=== PATIENT | female | born 1995 | race Caucasian/White ===

== ENCOUNTER 2023-04-08 15:23 | Emergency (ER) | payer BC, SELFPAY ==
--- NOTE | ~2023-04-08 | XR_ITS ---
EXAM: XR ankle LT min 3V DATE: 04/08/2023 16:03 HISTORY: fall down hill . COMPARISON: None available. FINDINGS: Normal mineralization. Oblique fracture of the medial malleolus. Oblique and mildly commin uted, posteriorly displaced distal fibular fracture, extending to the level of the joint line. Final Block Press Operator iorly displaced posterior malleolus fracture. Posterior dislocation of the talar dome relative to the tibial plafond. No lytic or blastic lesion. Minimal Achilles and moderate plantar enthesopathy. No e rosion or periosteal change. Ankle soft tissue swelling. IMPRESSION: Trimalleolar left ankle fracture with posterior tibiotalar dislocation. Reviewed, dictated and finalized at location K. REL MAKER IMPRESSION: Trimalleolar left ankle fracture with posterior tibiotalar dislocat ion.
[2023-04-08 15:43] VITALS: BP 108/68; PULSE 54; RESP 16; TEMP 35.8; O2SAT 100
--- NOTE | 2023-04-08 15:46 | ED.GENADULT ---
HPI - General Adult General Chief complaint: Extremity Injury, Lower Stated complaint: left ankle injury Source: patient, RN notes reviewed and old records reviewed Mode of arrival: ambulatory Limitations: no limitations History of Present Illness HPI narrative: 27-year-old female presents to [facility] with complaints of left ankle pain after feeling pop and twisting ankle. Patient has not taken anything for pain. Related Data Home Medications Medication Instructions Recorded Confirmed norethindrone acetate 1.5 1 tablet PO DAILY 07/12/22 04/08/23 mg-ethinyl estradiol 30 mcg tablet (Loestrin) Allergies Allergy/AdvReac Type Severity Reaction Status Date / Time No Known Allergies Allergy Verified 04/08/23 15:56 Review of Systems Constitutional: Constitutional: Reports no additional constitutional complaints, Denies body ache(s), Denies chills, Denies fatigue, Denies fever(s) and Denies headache(s) Eyes: Eyes: Reports no additional eye complaints and Denies blurry vision ENT: Reports system reviewed and no additional complaints, except as documented, Denies vertigo, Denies dizziness, Denies ear discharge, Denies otalgia, Denies facial pain, Denies headache(s), Denies nasal congestion, Denies nasal discharge, Denies sinus pain, Denies sinus pressure and Denies sore throat Cardiovascular: Cardiovascular: Reports no additional cardiovascular complaints, Denies chest pain, Denies chest pain at rest, Denies rapid heart rate and Denies dyspnea Respiratory: Respiratory: Reports no additional respiratory complaints, Denies chest congestion, Denies cough, Denies pain on inspiration, Denies pain with cough and Denies dyspnea Gastrointestinal: Gastrointestinal: Denies abdominal pain, Denies diarrhea, Denies nausea and Denies vomiting Musculoskeletal: Musculoskeletal: Reports arthralgias and Reports joint swelling Integumentary/Breasts: Skin/Breast: Denies rash Neurologic: Reports system reviewed and no additional complaints, except as documented, Denies vertigo, Denies dizziness and Denies headache(s) Endocrine: Endocrine: Denies fatigue [facility] Past Medical History Medical History (Updated 04/08/23 @ 18:38 by Calvin Lew PA-C) Anxiety disorder, unspecified Social History Social History Smoking status: Never smoker Alcohol intake: current Alcohol use details: occasionally Lack of Transportation: No Lack of Food: Never True Current Housing: I Have Housing Concerned About Future Housing: No Difficulty Paying Gas/Electric Bills: No Difficulty Paying for Meds: No Currently Unemployed: No Education: Bachelor's Degree Difficulty w/ Childcare or Family Care: No Comments At the time of my signature, I reviewed and agree with the nursing past medical, surgical, social, and family history. There is no relevant family history pertinent to the patient complaint. Exam Const: General: cooperative, healthy appearing, no acute distress and well nourished Nutritional Appearance: well nourished Orientation/consciousness: patient oriented x3 Limitations: no limitations HENMT: Head: normal to inspection and normocephalic Ears: external ears normal and mastoids normal Face/Nose/Sinus: normal facial exam Face and sinus: normal facial exam Mouth: Yes Normal oral and palatal mucosa present and Yes moist mucous membranes Eyes: General: appearance normal, both eyes and all related structures Sclera: sclerae normal Pupils: Equal, round and reactive pupils present Resp: Effort & Inspection: normal respiratory effort, able to speak in complete sentences, no audible wheezes, no cough, no respiratory distress and no retractions Skin: General skin exam: normal color and no rashes or lesions noted Neuro: General: patient oriented x3 Cranial nerves: Yes Equal, round and reactive pupils present Extrem: Left lower extremity: ankle Details: tendernes
== END 2023-04-08 16:48 | disposition short-term general hospital (02) ==
PROVIDERS: Emergency Provider Registered Nurse; PCP Emergency Medicine
DX: S82.852A Displaced trimalleolar fracture of left lower leg, initial encounter for closed fracture (principal); X50.9XXA Other and unspecified overexertion or strenuous movements or postures, initial encounter; S93.05XA Dislocation of left ankle joint, initial encounter
CPT/HCPCS: 29515; 73610; 99214; G0463

== ENCOUNTER 2023-04-08 16:58 | Inpatient (IN) | payer BC, SELFPAY ==
--- NOTE | ~2023-04-08 | XR_ITS ---
EXAMINATION: XR fluoroscopy no charge DATE: 04/09/2023 09:54 INDICATION: Closed fracture of left ankle. TECHNIQUE: 5 intraoperative spot fluoroscopic views of left ankle were obtained. I wasn't present. Fl uoroscopy exposure time was 11 seconds. COMPARISON: Left ankle radiographs 04/08/2023 FINDINGS: There is a comminuted fracture of distal fibula. The main distal fracture fragment demonstr ates 3 mm posterior displacement. There is a fracture of posterior malleolus with 4 mm posterior disp lacement of the posterior fracture fragment. There is an oblique fracture of medial malleolus in near -anatomic alignment. IMPRESSION: 1. Trimalleolar ankle fracture with improvement in alignment status post closed reduction. Reviewed, dictated and finalized at location A. [employer] SCHOOL TEACHER LIBRARIAN
--- NOTE | ~2023-04-08 | CT_ITS ---
EXAMINATION: CT ankle LT wo con DATE: 04/09/2023 10:46 INDICATION: Left ankle fracture. Postop. TECHNIQUE: Computed tomography (CT) of the left ankle was performed without intravenous contrast. Aut omated exposure control and iterative reconstruction technique were employed. The dose-length product was 440.55 mGy-cm. COMPARISON: Left ankle radiographs 04/08/2023 FINDINGS: There is a comminuted fracture of distal fibula with proximal medial aspect of the fracture line 4.4 cm proximal to the level of the tibial plafond. The distal fracture fragment demonstrates 5 mm posterior displacement. There is a comminuted fracture involving the posterior aspect of the tibi al plafond and posterior aspect of medial malleolus with 3 mm fracture gap and 2 mm step-off at the p osterior tibial plafond articular surface. Other joint spaces are normal. There is an enthesophyte at plantar aspect of calcaneal tuberosity. IMPRESSION: 1. Trimalleolar ankle fracture. Reviewed, dictated and finalized at location A. MER MEAT
--- NOTE | ~2023-04-08 | XR_ITS ---
EXAM: XR ankle LT 2V DATE: 04/08/2023 18:14 HISTORY: post reduction . COMPARISON: Same date at 3:55 PM. FINDINGS/IMPRESSION: Interval cast application. Essentially unchanged alignment of the tibiotalar dis location with trimalleolar ankle fracture, given interval differences in positioning and technique. Reviewed, dictated and finalized at location K. ONNEL CONSULTANT
--- NOTE | ~2023-04-08 | XR_ITS ---
EXAMINATION: XR surgery orthopedic DATE: 04/10/2023 15:13 INDICATION: ORIF left ankle fracture TECHNIQUE: 3 fluoroscopic images of the left ankle were obtained during procedure performed by Dr. Bruno marion. Radiologist was not present for the imaging or procedure. The amount of fluoroscopy time used during this procedure was 1.4 minutes. COMPARISON: 04/09/2023 FINDINGS: Interval reduction and internal fixation of the trimalleolar fracture of the left ankle. The medial a nd posterior malleolar fracture is fixed with a pair of screws. The distal fibular fracture is fixed with a retrograde intramedullary bandar and pair of distal interlocking screws. There is also a tightrop e type distal tibiofibular syndesmotic fixation with metallic buttons at the medial and lateral sides of a lucent tunnel extending across the metaphyseal region of the distal tibia and fibula. Alignment appears near-anatomic with minimal residual displacement of the distal fibular and posterior malleol ar fractures and no appreciable displacement of the medial malleolar fracture. Ankle mortise is congr uent. Joint spaces appear normal. No new fractures identified. IMPRESSION: 1. Near-anatomic alignment post reduction internal fixation of a trimalleolar fracture at the left an kle including distal tibiofibular syndesmotic fixation. Reviewed, dictated and finalized at location A. HI DEVELOPER IMPRESSION: 1. Near-anatomic alignment post reduction internal fixation of a trimalleolar f racture at the left ankle including distal tibiofibular syndesmotic fixation.
[2023-04-08 16:59] VITALS: BP 107/66; PULSE 54; RESP 18; TEMP 36.1; O2SAT 100
--- NOTE | 2023-04-08 17:06 | ED.GENADULT ---
HPI - General Adult General Chief complaint: Extremity Injury, Lower <SIENNA Arora Last Filed: 04/09/23 00:38> Stated complaint: Left ankle injury <SIENNA Arora Last Filed: 04/09/23 00:38> Time Seen by Provider: 04/08/23 17:05 <SIENNA Arora Last Filed: 04/09/23 00:38> Source: patient <SIENNA Arora Last Filed: 04/09/23 00:38> Mode of arrival: ambulatory <SIENNA Arora Last Filed: 04/09/23 00:38> Limitations: no limitations <SIENNA Arora Last Filed: 04/09/23 00:38> History of Present Illness HPI narrative: This is a 27-year-old female who presents to the ED after urgent care visit for chief complaint of left ankle injury. Patient reports she was walking her dog going down held today. Footwear was slides. She slipped on a gum ball on the ground causing her to roll her ankle. She felt a pop and she fell down. Significant difficulty with ambulation after the injury. Urgent care took an x-ray that showed trimalleolar fracture of the left ankle with talotibial dislocation. Denies numbness, weakness or any further sites of injury. presents with splint in place <SIENNA Arora Last Filed: 04/09/23 00:38> Related Data Home medications: Home Medications Medication Instructions Recorded Confirmed norethindrone acetate 1.5 1 tablet PO DAILY 07/12/22 04/08/23 mg-ethinyl estradiol 30 mcg tablet (Loestrin) <SIENNA Arora Last Filed: 04/09/23 00:38> Allergies/adverse reactions: Allergies Allergy/AdvReac Type Severity Reaction Status Date / Time No Known Allergies Allergy Verified 04/08/23 15:56 <SIENNA Arora Last Filed: 04/09/23 00:38> Review of Systems Review of Systems: All systems as dictated in HPI <SIENNA Arora Last Filed: 04/09/23 00:38> [facility] Past Medical History Medical History: Medical History Anxiety disorder, unspecified <Calvin Lew PA-C - Last Filed: 04/09/23 00:38> Social History Social History: Social History Smoking status: Never smoker Alcohol intake: current Drinks per week: 1 Alcohol use details: occasionally Substance use type: marijuana Other substance usage details: VAPE Do You Feel Safe in your Home?: Yes Lack of Transportation: No Lack of Food: Never True Current Housing: I Have Housing Concerned About Future Housing: No Difficulty Paying Gas/Electric Bills: No Difficulty Paying for Meds: No Currently Unemployed: No Education: Bachelor's Degree Difficulty w/ Childcare or Family Care: No Spiritual care concerns: No <Calvin Lew PA-C - Last Filed: 04/09/23 00:38> Exam Narrative: GENERAL: Well-appearing, well-nourished, and in no acute distress. HEAD: Normocephalic, atraumatic. EYES: PERRLA and EOMI. ENT: Nares clear, no rhinorrhea or epistaxis. Mucous membranes moist. Oropharynx without tonsillar hypertrophy exudate or other lesions. NECK: Supple. No adenopathy or masses. CHEST: No respiratory distress. Clear to auscultation. No wheezes rales or rhonchi HEART: Regular rate and rhythm. No murmur heard. Normal peripheral pulses. ABDOMEN: Soft, nontender, nondistended, normal active bowel sounds. MSK: Moderate swelling and tenderness throughout the ankle joint. Neurovascularly intact distally. SKIN: Warm, dry, no rash. Cap refill intact. NEURO: Alert and oriented x3. No focal deficits. PSYCH: Normal mood and affect. <Calvin Lew PA-C - Last Filed: 04/09/23 00:38> Course MEDICAL STAFF ASSISTANT/PA Physician Supervision For this patient encounter, I reviewed the MEDICAL STAFF ASSISTANT or PA documentation, treatment plan, and medical decision making; and I had [id number] time with this patient. <Rajan Anthony MD - Last Filed: 04/09/23 11:59> Vital Signs Vital signs: Vital Signs Tem
--- NOTE | 2023-04-08 17:14 | ECG_ITS ---
Measurements Intervals [place] Rate: 56 P: 16 [place]: 124 QRS: -8 QRSD: 85 T: -5 QT: 457 QTc: 445 Interpretive Statements SINUS BRADYCARDIA RSR' IN V1 OR V2, PROBABLY NORMAL VARIANT INFERIOR INFARCT, AGE INDETERMINATE BASELINE ARTIFACT- I, II, III, AVR, AVL, AVF ABNORMAL ECG NO PREVIOUS ECG AVAILABLE FOR COMPARISON Electronically Signed On 04-08-2023 20:38:09 MARKER MACHINE by Chino Shearer D.O.
[2023-04-08 17:36] LABS: Basophils Absolute Auto 0.1 K/mm3 (0.0-0.1); Basophils Percent Auto 0.5 % (0.2-1.2); Eosinophils Absolute Auto 0.1 K/mm3 (0-0.3); Eosinophils Percent Auto 1.1 % (0-4.4); Hematocrit 41.2 % (37.0-47.0); Hemoglobin 13.8 g/dL (12.0-15.0); Immature Granulocyte Absolute 0.02 K/mm3 (0.00-0.031); Immature Granulocyte Percent A 0.2 % (0-0.5); Lymphocytes Absolute Auto 2.59 K/mm3 (0.9-3.2); Lymphocytes Percent Auto 21.6 % (18.3-44.2); Mean Corpuscular HGB Conc 33.5 g/dl (32-36); Mean Corpuscular Hemoglobin 31.2 pg (26-34); Mean Platelet Volume 9.2 fl (7.4-10.4); Monocytes Absolute Auto 0.5 K/mm3 (0.1-0.6); Monocytes Percent Auto 4.1 % (2.6-8.5); Neutrophils Absolute Auto 8.7 K/mm3 (1.3-6.7); Neutrophils Percent Auto 72.5 % (45.5-73.1); Platelet Count Result 242 k/mm3 (150-375); Red Blood Count 4.43 M/mm3 (4.2-5.4); Red Cell Distribution Width 12.1 % (11.5-14.5)
[2023-04-08 17:46] LABS: Partial Thromboplastin Time 23.5 SECONDS (22.3-36.8); Prothrombin Time 13.8 Seconds (11.1-14.7)
[2023-04-08 17:47] LABS: Alanine Aminotransferase 22 U/L (6-35); Albumin Level 4.4 g/dL (3.5-5.1); Alkaline Phosphatase 83 U/L (38-126); Anion Gap 8 mmol/L (8-16); Aspartate Amino Transferase 35 U/L (14-36); Bilirubin,Total 0.9 mg/dL (0.2-1.3); Blood Urea Nitrogen 15 mg/dL (7-17); Calcium 9.1 mg/dL (8.4-10.2); Carbon Dioxide 25 mmol/L (22-30); Chloride 99 mmol/L (98-107); Estimated CRCL calculation 83 ml/min; Estimated Glomerular Filt Rate > 60; Glucose 104 mg/dL (65-110); Potassium 3.7 mmol/L (3.4-5.0); Sodium 132 mmol/L (137-145)
[2023-04-08] MEDS: fentaNYL CITRATE INJ (*CRX) 100 MCG/2 ML VIAL 50 MCG IV PUSH (17:51)
[2023-04-08 18:00] VITALS: BP 102/64; PULSE 58; RESP 20; O2SAT 100
[2023-04-08 18:30] VITALS: BP 116/64; PULSE 51; RESP 14; O2SAT 100
[2023-04-08 19:33] VITALS: BP 125/67; PULSE 55; RESP 16; TEMP 36.8; O2SAT 100
[2023-04-08 19:34] VITALS: BMI 26.6
[2023-04-08] MEDS: HYDROmorphone HCL INJ (*CRX) 1 MG/ML SYR 0.5 MG IV PUSH ×2 (19:47→23:39)
--- NOTE | 2023-04-08 19:53 | ADMGEN ---
This patient, Kim Candelario, was admitted to Medical Room 261-01. Patient/family oriented to hospital policies and general routines including ID bracelet, bed and alarms, visiting hours, pain management, procedures, bathroom and other care routines, personal items, smoking policy, room service/diet, and visiting hours. Information on how to activate the Rapid Response Team has been discussed. Patient/Family are encouraged to report perceived risks to care and to ask questions if they do not understand what they are told or what they should do.
[2023-04-08 20:00] VITALS: PULSE 55; RESP 16; O2SAT 100
[2023-04-09] VITALS (13 sets, daily range): BP systolic 107–131; BP diastolic 58–86; PULSE 56–68; RESP 12–16; TEMP 36.2–37.1; O2SAT 98–100
[2023-04-09] MEDS: HYDROmorphone HCL INJ (*CRX) 1 MG/ML SYR 0.5 MG IV PUSH (05:17)
--- NOTE | 2023-04-09 07:42 | PM.IMHP ---
H&P: HPI History of Present Illness Date/Time: 04/09/23 07:42 Chief Complaint: Left ankle fracture Narrative: 27-year-old walking yesterday when she slipped and injured the left ankle. Emergency room found to have fracture dislocation of the left ankle. Attempted reduction by the emergency room, ankle splinted. Patient admitted for further care. Complains of left ankle pain. Denies any other injury at the time of her fall. Denies loss of consciousness. Post reduction radiographs show persistent posterior dislocation left ankle. Review of Systems Constitutional: Constitutional: Denies fever(s) Eyes: Eyes: Denies blurry vision ENT: Reports Normal hearing present Cardiovascular: Cardiovascular: Denies chest pain and Denies dyspnea Respiratory: Respiratory: Denies dyspnea and Denies wheezing Gastrointestinal: Gastrointestinal: Denies abdominal pain Genitourinary: Genitourinary: Denies urinary urgency Musculoskeletal: Musculoskeletal: Reports as per HPI and Denies numbness Integumentary/Breasts: Skin/Breast: Denies changing lesions and Denies sores Neurologic: Reports Normal hearing present, Denies behavioral changes, Denies confusion, Denies numbness and Denies convulsions Psychiatric: Psychiatric: Denies behavioral changes, Denies confusion and Denies hallucinations Endocrine: Endocrine: Denies heat intolerance Hematologic/Lymphatic: Hematologic/Lymphatic: Denies easy bleeding Allergic/Immunologic: Allergic/Immunologic: Denies wheezing PMFSH Past Medical History Medical History Anxiety disorder, unspecified Social History Social History Smoking status: Never smoker Alcohol intake: current Drinks per week: 1 Alcohol use details: occasionally Substance use type: marijuana Other substance usage details: VAPE Do You Feel Safe in your Home?: Yes Lack of Transportation: No Lack of Food: Never True Current Housing: I Have Housing Concerned About Future Housing: No Difficulty Paying Gas/Electric Bills: No Difficulty Paying for Meds: No Currently Unemployed: No Education: Bachelor's Degree Difficulty w/ Childcare or Family Care: No Spiritual care concerns: No Meds Home Medications and Allergies Home Medications Medication Instructions Recorded Confirmed Type norethindrone acetate 1.5 1 tablet PO DAILY 07/12/22 04/08/23 History mg-ethinyl estradiol 30 mcg tablet (Loestrin) sertraline 50 mg tablet (Zoloft) 75 mg PO DAILY #135 tabs 03/13/23 04/08/23 Rx dextroamphetamine-amphetamine 20 20 mg PO DAILY #30 tabs 03/28/23 04/08/23 Rx mg tablet (Adderall) Allergies Allergy/AdvReac Type Severity Reaction Status Date / Time No Known Allergies Allergy Verified 04/08/23 15:56 Vital Signs Vital Signs - 24 hr 04/08/23 16:59 04/08/23 18:00 04/08/23 18:30 Temperature 97 F L Pulse Rate 54 L 58 L 51 L Respiratory Rate 18 20 14 Blood Pressure 107/66 102/64 116/64 Pulse Oximetry 100 100 100 Oxygen Delivery Room Air 04/08/23 19:33 04/08/23 20:00 04/09/23 04:56 Temperature 98.2 F 98.3 F Pulse Rate 55 L 55 L 58 L Respiratory Rate 16 16 16 Blood Pressure 125/67 120/66 Pulse Oximetry 100 100 100 Oxygen Delivery Room Air Exam Const: General: No confusion Orientation/consciousness: No confusion HENMT: Head: normal to inspection, normocephalic and atraumatic Neck: Neck: supple and nontender Chest: Chest palpation & inspection: normal inspection of the chest Resp: Effort & Inspection: normal respiratory effort and no audible wheezes Cardio: Rate: regular rate : General: Yes deferred Skin: General skin exam: no rashes or lesions noted Neuro: General: No confusion Extrem: General: capillary refill normal Right upper extremity: normal to inspection Left upper extremity: normal to inspection Right lower extremit
--- NOTE | 2023-04-09 07:46 | WPDHPUPDATE1 ---
History and Physical Update Update Date/Time: 04/09/23 07:46 History and Physical has been reviewed, including an updated exam of the patient. There are NO changes in the patient's condition. Risks, benefits, and alternatives have been discussed and questions answered. Patient agrees to proceed with procedure.
--- NOTE | 2023-04-09 09:23 | WPDANESEPPF ---
Anes - Initial Pre Proc Eval Procedure: Operation Date: 04/09/23 10:00 Proposed Procedures p Closed Reduction Any Ortho(Left) - Long Campbell MD Date/Time: 04/09/23 09:23 Surgeon: Long Campbell MD Pre Op Diagnosis: Left Trimalleolar Fracture Patient Data Age: 27 Gender: F Height: 1.65 m Weight: 72.7 kg Last Vital Signs Temp 36.8 C 04/09/23 04:56 Pulse 58 L 04/09/23 04:56 Resp 16 04/09/23 04:56 BP 120/66 04/09/23 04:56 Pulse Ox 100 04/09/23 04:56 O2 Del Method Room Air 04/08/23 20:00 Allergies Allergy/AdvReac Type Severity Reaction Status Date / Time No Known Allergies Allergy Verified 04/08/23 15:56 Home Medications Medication Instructions Recorded Confirmed Type norethindrone acetate 1.5 1 tablet PO DAILY 07/12/22 04/08/23 History mg-ethinyl estradiol 30 mcg tablet (Loestrin) sertraline 50 mg tablet (Zoloft) 75 mg PO DAILY #135 tabs 03/13/23 04/08/23 Rx dextroamphetamine-amphetamine 20 20 mg PO DAILY #30 tabs 03/28/23 04/08/23 Rx mg tablet (Adderall) Laboratory Tests 04/08/23 17:26 WBC 12.0 H K/mm3 (4.5-10.0) RBC 4.43 M/mm3 (4.2-5.4) Hgb 13.8 g/dL (12.0-15.0) Hct 41.2 % (37.0-47.0) MCV 93.0 fl (80-100) MCH 31.2 pg (26-34) MCHC 33.5 g/dl (32-36) RDW 12.1 % (11.5-14.5) Plt Count 242 k/mm3 (150-375) MPV 9.2 fl (7.4-10.4) Immature Gran % (Auto) 0.2 % (0-0.5) Neut % (Auto) 72.5 % (45.5-73.1) Lymph % (Auto) 21.6 % (18.3-44.2) [place] % (Auto) 4.1 % (2.6-8.5) Eos % (Auto) 1.1 % (0-4.4) Baso % (Auto) 0.5 % (0.2-1.2) Lymph # (Auto) 2.59 K/mm3 (0.9-3.2) [place] # (Auto) 0.5 K/mm3 (0.1-0.6) Eos # (Auto) 0.1 K/mm3 (0-0.3) Baso # (Auto) 0.1 K/mm3 (0.0-0.1) Abs Immat Gran (auto) 0.02 K/mm3 (0.00-0.031) Absolute Neuts (auto) 8.7 H K/mm3 (1.3-6.7) Absolute Nucleated RBC 0.0 K/mm3 (0.0-0.012) Nucleated RBC % 0.0 % (0.0-0.2) PT 13.8 Seconds (11.1-14.7) INR 1.0 APTT 23.5 SECONDS (22.3-36.8) Sodium 132 L mmol/L (137-145) Potassium 3.7 mmol/L (3.4-5.0) Chloride 99 mmol/L (98-107) Carbon Dioxide 25 mmol/L (22-30) Anion Gap 8 mmol/L (8-16) BUN 15 mg/dL (7-17) Creatinine 0.80 mg/dL (0.7-1.0) Estim Creat Clear Calc 83 ml/min Estimated GFR > 60 (59 - ) Glucose 104 mg/dL (65-110) Calcium 9.1 mg/dL (8.4-10.2) Total Bilirubin 0.9 mg/dL (0.2-1.3) AST 35 U/L (14-36) ALT 22 U/L (6-35) Alkaline Phosphatase 83 U/L (38-126) Total Protein 7.0 g/dL (6.3-8.2) Albumin 4.4 g/dL (3.5-5.1) Blood Type O Negative Antibody Screen Negative Patient hx anesthesia problems: none Family hx anesthesia problems: none Results Review: All pre-operative results and documents have been reviewed as part of the pre-operative evaluation. [facility] Past Medical History Medical History Anxiety disorder, unspecified Social History Social History Smoking status: Never smoker Alcohol intake: current Drinks per week: 1 Alcohol use details: occasionally Substance use type: marijuana Other substance usage details: VAPE Do You Feel Safe in your Home?: Yes Lack of Transportation: No Lack of Food: Never True Current Housing: I Have Housing Concerned About Future Housing: No Difficulty Paying Gas/Electric Bills: No Difficulty Paying for Meds: No Currently Unemployed: No Education: Bachelor's Degree Difficulty w/ Childcare or Family Care: No Spiritual care concerns: No Anes - Eval Final PreProcedure Day of Procedure 04/09/23 09:23 Patient weight: normal Heart: regular rate and rhythm Lungs: clear to auscultation Airway: Mallampati scale class II Neurological: alert and oriented [place]
--- NOTE | 2023-04-09 09:32 | SUR.PREOP ---
PREOP U PREG WAIVED BY DR. Salvador PEÑA
[2023-04-09] MEDS: LACTATED RINGERS 1,000 ML 30 ML IV CONT (09:48)
[2023-04-09] MEDS: fentaNYL CITRATE INJ (*CRX) 100 MCG/2 ML VIAL 25 MCG IV PUSH ×4 (09:50→10:05)
--- NOTE | 2023-04-09 09:50 | W.PM.PROC2 ---
Procedure Note - Detailed Date of Procedure 04/09/23 Pre-op Diagnosis Left Trimalleolar Fracture Post-op Diagnosis Same Procedure Performed Close reduction left ankle fracture dislocation Surgeon Long Campbell MD Anesthesia General Indications 27-year-old with fracture dislocation of the left ankle. On reduced in the ER. Presents for close treatment. Description of Procedure Operative extremity marked in preoperative holding. Informed consent given. Patient brought to the operating room and underwent general anesthetic by the anesthesia team. Splint on the left leg removed and a close reduction performed of the left ankle. Image intensification confirmed reduction. Soft dressing and splint applied. Post splinting image intensification confirmed maintenance of reduction. Patient awoke anesthesia, extubated taken to the recovery room in stable condition. Estimated Blood Loss 0 Urine Output 900 Drains No Packing No Pathology None sent Complications None Condition Stable Disposition PACU [facility] Billing Surgery - Charge Forward: Surgery Billing ([id number])
--- NOTE | 2023-04-09 10:50 | PC.NURSE ---
Pt back to room via stretcher. Parents at bedside.
[2023-04-09] MEDS: HYDROcodone/acetaminophen (*CRX) 7.5-325 MG TABLET 1 TAB PO ×3 (11:08→21:43)
[2023-04-09] MEDS: SERTRALINE HCL 25 MG TABLET PO (11:08)
[2023-04-09] MEDS: SERTRALINE HCL 50 MG TABLET PO (11:08)
--- NOTE | 2023-04-09 11:26 | PHAR ---
The patient's home meds of D-Amphetamine salt combo 20mg and Low-Ogestrel oral contraceptive have been verified.
--- NOTE | 2023-04-09 18:16 | PC.NURSE ---
Pt using two home meds. One can be found in [facility] under room 261. The controlled med is in safe in med room
[2023-04-10] VITALS (14 sets, daily range): BP systolic 103–132; BP diastolic 47–76; PULSE 58–84; RESP 12–18; TEMP 36.3–36.9; O2SAT 96–100
[2023-04-10] MEDS: HYDROcodone/acetaminophen (*CRX) 7.5-325 MG TABLET 1 TAB PO ×2 (04:37→10:42)
--- NOTE | 2023-04-10 07:43 | PM.PNORT ---
Progress Note: A&P Assessment and Plan (1) Closed displaced trimalleolar fracture of left ankle: Qualifiers: Encounter type: initial encounter Qualified Code(s): S82.852A - Displaced trimalleolar fracture of left lower leg, initial encounter for closed fracture Code(s): S82.852A - Displaced trimalleolar fracture of left lower leg, initial encounter for closed fracture Status: Acute Assessment and Plan: S/P closed reduction yesterday. CT scan shows comminuted trimal fx Discussed nonoperative and operative treatment options with the patient. Risks and benefits of each as well as alternatives were reviewed. All of the patient's questions were answered. The risks of surgery reviewed including but not limited to: Neurovascular damage, wound complication, infection, blood clot, pulmonary embolus, stroke, myocardial infarction, and anesthetic risks up to and including . Continued pain and possible dysfunction were explained. Specific risks of the procedure including later recurrence of deformity. No guarantees were offered. If hardware used, discussed risk of failure/ breakage and possible need for removal. If complications occur, the patient understands the need for further treatment, possible further surgery. Patient verbalizes understanding and wishes to proceed. PLAN: open reduction internal fixation left ankle fracture Subjective Subjective Date/Time Seen: 04/10/23 07:43 Principal diagnosis: LT ankle fx/ dislocation Interval history: S/P closed reduction. CT scan done yesterday Exam Const: General: No confusion Orientation/consciousness: No confusion HENMT: Head: normal to inspection, normocephalic and atraumatic Neck: Neck: supple and nontender Chest: Chest palpation & inspection: normal inspection of the chest Resp: Effort & Inspection: normal respiratory effort and no audible wheezes Cardio: Rate: regular rate : General: Yes deferred Skin: General skin exam: no rashes or lesions noted Neuro: General: No confusion Extrem: General: capillary refill normal Right upper extremity: normal to inspection Left upper extremity: normal to inspection Right lower extremity: normal to inspection and hip/thigh Details: normal to inspection Left lower extremity: hip/thigh Details: normal to inspection, knee Details: normal to inspection and knee ligament exam normal Details: anterior drawer test normal, valgus stress test normal, varus stress test normal and Brigid's test normal, ankle (no calf tenderness) Details: abnormal to inspection ( Obvious swelling at the ankle joint), tenderness ( lateral malleolus), swelling (moderate lateral ankle), abnormal ROM Details: pain with active ROM Details: with plantar flexion and with dorsiflexion and with range as follows ( limited secondary to injury), crepitus Details: at the lateral malleolus and other ( good capillary refill in toes, 2+ DP pulse) and foot Details: normal capillary refill, toes with normal ROM, vascular exam Details: dorsalis pedis pulse present and motor-sensory exam Psych: Affect: normal affect Objective Data Vital Signs Vital Signs: Vital Signs - 24 hr 04/09/23 09:48 04/09/23 10:00 04/09/23 10:15 Temperature 97.1 F L Pulse Rate 56 L 63 63 Respiratory Rate 12 12 13 Blood Pressure 107/69 124/86 117/83 Pulse Oximetry 100 100 100 Oxygen Delivery Simple Face Mask Room Air Room Air Oxygen Flow Rate 8 04/09/23 10:30 04/09/23 11:00 04/09/23 11:15 Temperature 98.7 F 98.7 F Pulse Rate 60 57 L 59 L Respiratory Rate 14 16 16 Blood Pressure 115/58 L 117/64 119/72 Pulse Oximetry 100 99 100 Oxygen Delivery Room Air Oxygen Flow Rate 04/09/23 11:18 04/09/23 12:45 04/09/23 16:45 Temperature 98.6 F 98.4 F 98.6 F Pulse Rate 62 68 62 Respiratory Rate 16 16 16 Blood Pressure 110/66 107/58 L 118/70 Pulse Oximetry 100 100 100 Oxygen Delivery Oxygen Flow Rate 04/09/23 20:18 04/09/23 20:48
--- NOTE | 2023-04-10 07:46 | WPDHPUPDATE1 ---
History and Physical Update Update Date/Time: 04/10/23 07:46 History and Physical has been reviewed, including an updated exam of the patient. There are NO changes in the patient's condition. Risks, benefits, and alternatives have been discussed and questions answered. Patient agrees to proceed with procedure.
--- NOTE | 2023-04-10 09:19 | WPDANESPN ---
Anes - Prog Note Post-Op Date/Time: 04/10/23 09:19 Cardiovascular status: normal Respiratory status: normal Airway patency: baseline Mental status: baseline Post-Op hydration status: normal Vital Signs: Last Vital Signs Temp 36.9 C 04/10/23 04:18 Pulse 62 04/10/23 04:18 Resp 12 04/10/23 04:18 BP 120/72 04/10/23 04:18 Pulse Ox 96 04/10/23 04:18 O2 Del Method Room Air 04/09/23 20:48 O2 Flow Rate 8 04/09/23 09:48 Pain Score (VAS): 4/10 I/O: Intake & Output 04/09/23 04/10/23 04/10/23 23:59 07:59 15:59 Intake Total 1590 400 Output Total 4300 600 Balance -2710 -200 Laboratory Tests 04/08/23 17:26 04/08/23 17:26 Post-procedural complaints: none Patient Feedback: Patient satisfied with anesthetic care.
--- NOTE | 2023-04-10 12:25 | PC.NURSE ---
Patient off floor to OR.
--- NOTE | 2023-04-10 12:42 | P.PNAN_ITS ---
Anes - Initial Pre Proc Eval Procedure: Operation Date: 04/10/23 14:00 Proposed Procedures p Open Reduction Internal Fixation Left Ankle - Long Campbell MD Date/Time: 04/10/23 12:42 Surgeon: Long Campbell MD Pre Op Diagnosis: Left Trimalleolar Fracture Patient Data Age: 27 Gender: F Height: 1.65 m Weight: 72.7 kg Last Vital Signs Temp 36.9 C 04/10/23 04:18 Pulse 62 04/10/23 04:18 Resp 12 04/10/23 04:18 BP 120/72 04/10/23 04:18 Pulse Ox 96 04/10/23 04:18 O2 Del Method Room Air 04/10/23 09:00 O2 Flow Rate 8 04/09/23 09:48 Allergies Allergy/AdvReac Type Severity Reaction Status Date / Time No Known Allergies Allergy Verified 04/08/23 15:56 Home Medications Medication Instructions Recorded Confirmed Type norethindrone acetate 1.5 1 tablet PO DAILY 07/12/22 04/08/23 History mg-ethinyl estradiol 30 mcg tablet (Loestrin) sertraline 50 mg tablet (Zoloft) 75 mg PO DAILY #135 tabs 03/13/23 04/08/23 Rx dextroamphetamine-amphetamine 20 20 mg PO DAILY #30 tabs 03/28/23 04/08/23 Rx mg tablet (Adderall) Patient hx anesthesia problems: none Family hx anesthesia problems: none Results Review: All pre-operative results and documents have been reviewed as part of the pre- operative evaluation. [facility] Past Medical History Medical History Anxiety disorder, unspecified Social History Social History Smoking status: Never smoker Alcohol intake: current Drinks per week: 1 Alcohol use details: occasionally Substance use type: marijuana Other substance usage details: VAPE Do You Feel Safe in your Home?: Yes Lack of Transportation: No Lack of Food: Never True Current Housing: I Have Housing Concerned About Future Housing: No Difficulty Paying Gas/Electric Bills: No Difficulty Paying for Meds: No Currently Unemployed: No Education: Bachelor's Degree Difficulty w/ Childcare or Family Care: No Spiritual care concerns: No Anes - Eval Final PreProcedure Day of Procedure 04/10/23 12:42 Patient weight: overweight Heart: regular rate and rhythm Lungs: clear to auscultation Airway: Mallampati scale class II Neurological: alert and oriented Last oral intake: >/= 8 hours ASA classification: II Emergent: no Anesthetic plan: proceed Anesthesia type and monitoring: general LMA and standard monitoring Results Review: All pre-operative results and documents have been reviewed as part of the pre- operative evaluation. Informed Consent: The patient's anesthetic plan and its attendant risks and benefits were discussed with the patient/family/POA. Questions were solicited and answers provided to the satisfaction of the patient/family/POA.
[2023-04-10] MEDS: KETOROLAC 15 MG/ML VIAL (*BKC) IV PUSH (13:20)
[2023-04-10] MEDS: ceFAZolin 2 GM/D5W 50 ML 2 GM/50 ML BAG IVPB (13:25)
[2023-04-10] MEDS: BUPIVACAINE/EPINEPHRINE 0.5% 30 ML VIAL INFILTRATE (13:54)
[2023-04-10] MEDS: LACTATED RINGERS 1,000 ML 30 ML IV CONT ×2 (15:34→15:35)
--- NOTE | 2023-04-10 15:55 | W.PM.PROC2 ---
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 CT scan shows trimalleolar fracture. Patient presents for operative treatment. Description of Procedure After informed consent, the operative extremity was marked in the preoperative holding area. Patient received intravenous antibiotics. Patient was then taken to the operating room and underwent general anesthesia by the anesthesia team. Positioned supine on the operating room table with a soft bump under the ipsilateral hip. A time-out was performed confirming the patient, site of the surgery, operative plan. Lower extremity then prepped and draped in the usual sterile surgical fashion using ChloraPrep skin solution. Foot and ankle exsanguinated and a thigh tourniquet inflated to 250 mmHg. Longitudinal incision made over the lateral ankle distal fibula with a 15 blade knife. Hemostasis controlled with electrocautery. Full-thickness soft tissue flaps developed and the fascia was incised in line with the skin incision. Fracture identified and cleared with a dental pick, irrigation and rongeur. Fracture reduced and held with bone-holding clamp. Image intensification confirmed reduction of the fracture and the ankle mortise. Fixation achieved with intramedullary nail device. Intramedullary guide bandar placed retrograde and verified with image intensification. Reaming and placement of the nail then performed. Proximal locking with the Padilla deployment device. Distal locking with a 2.7 mm screws were placed from lateral. Syndesmosis addressed with the tight rope system through the nail. Good alignment and stability of the fracture noted. Image intensification used to confirm reduction of the fracture and placement of the hardware. Medial side then addressed. Longitudinal incision made with a 15 blade knife over the medial malleolus fracture. Hemostasis controlled with electrocautery. Fascia incised in line with skin incision. Periosteum cleared from the medial malleolus fracture. Medial side of the joint inspected and noted to have mild amount of trauma to the chondral surface. Thorough irrigation of the ankle joint and suctioned out. Fracture reduced and provisionally pinned. Fixation achieved with 3.5 and 2.7 mm partially threaded cancellous screws x2 placed under direct visualization screw fashion. Image intensification confirmed reduction of the fracture and placement of the hardware. Stress of the ankle performed with good stability of the ankle mortise in all directions. Posterior malleolus then addressed. extending the dissection posteriorly from medial aspect the posterior malleolus fracture was able to be visualized. This was cleaned with irrigation dental pick. There was joint fragment which was completely displaced in the fracture site. This was Removed. Fracture then reduced and fixed with 4.0 mm partially-threaded cancellous screws placed from posterior to anterior. Image intensification confirm reduction placement of the hardware. Wounds thoroughly irrigated with antibiotic solution. Fascia repaired with 00 Vicryl interrupted suture. Subcutaneous tissue repaired with 000 Monocryl interrupted suture and Skin approximated with 4-0 nylon running and 3-0 nylon interrupted suture. Sterile dressings applied followed by bulky dressing and splint. Patient awoken from anesthesia, extubated and taken to the recovery room in stable condition. All sponge, needle and instrument counts correct at the end of the case. Palpable dorsalis pedis pulse noted prior to dressing. Implants Arthrex fibula locking nail 3.8 mm x 130 mm, 2.7 mm distal locking screw x2, syndesmosis tight rope 1. 2.
--- NOTE | 2023-04-10 16:05 | SUR.PHASEI ---
1602: Simple mask removed.
--- NOTE | 2023-04-10 17:00 | PC.NURSE ---
Patient returned to unit from recovery.
[2023-04-10] MEDS: SENNA/DOCUSATE SODIUM TABLET 2 TAB PO (17:15)
[2023-04-10] MEDS: oxyCODONE/ACETAMINOPHEN (*CRX) 10-325 MG TABLET 1 TAB PO (17:16)
--- NOTE | 2023-04-10 17:22 | PC.NURSE ---
On 04/10/23, license pending nurse provided care and completed [employer] documentation on this patient. I have reviewed the license pending nurse documentation and agree with the findings.
[2023-04-10] MEDS: SERTRALINE HCL 25 MG TABLET PO (17:57)
[2023-04-10] MEDS: SERTRALINE HCL 50 MG TABLET PO (17:57)
[2023-04-10] MEDS: ceFAZolin 1 GM/NS 50 ML 1 GM/50 ML BAG IVPB (20:14)
[2023-04-10] MEDS: ASPIRIN 325 MG ENTERIC TABLET PO (20:14)
[2023-04-11 00:14] VITALS: BP 116/54; PULSE 71; RESP 18; TEMP 36.4; O2SAT 99
[2023-04-11 03:29] VITALS: BP 116/54; PULSE 69; RESP 18; TEMP 36.5; O2SAT 98
[2023-04-11] MEDS: ceFAZolin 1 GM/NS 50 ML 1 GM/50 ML BAG IVPB ×2 (05:17→12:24)
[2023-04-11] MEDS: oxyCODONE/ACETAMINOPHEN (*CRX) 10-325 MG TABLET 1 TAB PO ×2 (05:52→11:05)
[2023-04-11 06:01] LABS: Basophils Absolute Auto 0.1 K/mm3 (0.0-0.1); Basophils Percent Auto 0.4 % (0.2-1.2); Eosinophils Absolute Auto 0.2 K/mm3 (0-0.3); Eosinophils Percent Auto 1.2 % (0-4.4); Hemoglobin 12.4 g/dL (12.0-15.0); Immature Granulocyte Absolute 0.05 K/mm3 (0.00-0.031); Immature Granulocyte Percent A 0.4 % (0-0.5); Lymphocytes Absolute Auto 4.21 K/mm3 (0.9-3.2); Lymphocytes Percent Auto 32.5 % (18.3-44.2); Mean Corpuscular HGB Conc 32.6 g/dl (32-36); Mean Corpuscular Hemoglobin 31.2 pg (26-34); Mean Corpuscular Volume 95.7 fl (80-100); Mean Platelet Volume 9.9 fl (7.4-10.4); Monocytes Absolute Auto 1.1 K/mm3 (0.1-0.6); Monocytes Percent Auto 8.6 % (2.6-8.5); Neutrophils Absolute Auto 7.4 K/mm3 (1.3-6.7); Neutrophils Percent Auto 56.9 % (45.5-73.1); Platelet Count Result 213 k/mm3 (150-375); Red Blood Count 3.97 M/mm3 (4.2-5.4); Red Cell Distribution Width 12.3 % (11.5-14.5)
[2023-04-11 06:12] LABS: Anion Gap 4 mmol/L (8-16); Blood Urea Nitrogen 11 mg/dL (7-17); Calcium 8.5 mg/dL (8.4-10.2); Carbon Dioxide 28 mmol/L (22-30); Chloride 103 mmol/L (98-107); Estimated CRCL calculation 83 ml/min; Estimated Glomerular Filt Rate > 60; Glucose 101 mg/dL (65-110); Potassium 3.8 mmol/L (3.4-5.0); Sodium 135 mmol/L (137-145)
--- NOTE | 2023-04-11 07:53 | PM.PNORT ---
Progress Note: A&P Assessment and Plan (1) Closed displaced trimalleolar fracture of left ankle: Qualifiers: Encounter type: subsequent encounter Fracture healing: with routine healing Qualified Code(s): S82.852D - Displaced trimalleolar fracture of left lower leg, subsequent encounter for closed fracture with routine healing Code(s): S82.852A - Displaced trimalleolar fracture of left lower leg, initial encounter for closed fracture Status: Acute Assessment and Plan: Postoperative day 1 open reduction internal fixation left ankle fracture. Operative findings and treatment reviewed with patient. Some issues with pain control. Still Using Dilaudid. PT/OT with crutches, nonweightbearing. Lab stable. Will see how she does with pain control and ambulation. Possible discharge later today or tomorrow. Subjective Subjective Date/Time Seen: 04/11/23 07:53 Post Op day: 1 Principal diagnosis: Lt ankle fx Interval history: Postoperative day 1 left ankle. Patient awake and alert. Complains of left ankle pain. Able to feel toes. Exam Const: General: No confusion Orientation/consciousness: No confusion HENMT: Head: normal to inspection, normocephalic and atraumatic Neck: Neck: supple and nontender Chest: Chest palpation & inspection: normal inspection of the chest Resp: Effort & Inspection: normal respiratory effort and no audible wheezes Cardio: Rate: regular rate : General: Yes deferred Skin: General skin exam: no rashes or lesions noted Neuro: General: No confusion Extrem: General: capillary refill normal Right upper extremity: normal to inspection Left upper extremity: normal to inspection Right lower extremity: normal to inspection and hip/thigh Details: normal to inspection Other: Left leg splint in place. Toes with good capillary refill and good sensation to touch. Able to move toes. Objective Data Vital Signs Vital Signs: Vital Signs - 24 hr 04/10/23 09:00 04/10/23 13:20 04/10/23 15:34 Temperature 98.4 F 98.3 F Pulse Rate 65 59 L Respiratory Rate 12 12 Blood Pressure 132/76 104/68 Pulse Oximetry 100 100 Oxygen Delivery Room Air Room Air Simple Face Mask Oxygen Flow Rate 6 04/10/23 15:43 04/10/23 15:45 04/10/23 16:00 Temperature Pulse Rate 58 L 72 65 Respiratory Rate 13 13 12 Blood Pressure 113/70 115/69 115/72 Pulse Oximetry 100 100 100 Oxygen Delivery Simple Face Mask Simple Face Mask Simple Face Mask Oxygen Flow Rate 8 8 8 04/10/23 16:15 04/10/23 16:30 04/10/23 16:45 Temperature Pulse Rate 62 59 L 62 Respiratory Rate 12 12 12 Blood Pressure 107/66 112/68 111/71 Pulse Oximetry 100 99 99 Oxygen Delivery Room Air Room Air Room Air Oxygen Flow Rate 04/10/23 17:03 04/10/23 17:18 04/10/23 17:48 Temperature 97.8 F 97.8 F 97.9 F Pulse Rate 58 L 58 L 59 L Respiratory Rate 12 12 16 Blood Pressure 121/66 109/64 117/63 Pulse Oximetry 99 100 96 Oxygen Delivery Oxygen Flow Rate 04/10/23 18:48 04/10/23 20:52 04/10/23 20:00 Temperature 97.9 F 97.3 F L Pulse Rate 84 76 Respiratory Rate 16 18 Blood Pressure 116/62 103/47 L Pulse Oximetry 99 100 Oxygen Delivery Room Air Oxygen Flow Rate 04/11/23 00:14 04/11/23 03:29 Temperature 97.6 F 97.7 F Pulse Rate 71 69 Respiratory Rate 18 18 Blood Pressure 116/54 L 116/54 L Pulse Oximetry 99 98 Oxygen Delivery Oxygen Flow Rate Intake/Output Intake/Output: Intake & Output 04/08/23 04/09/23 04/10/23 04/11/23 23:59 23:59 23:59 23:59 Intake Total 2330 2330 340 Output Total 9502 4850 Zspjxlu -8916 -319 340 Meds/Results Medications: Active Medications Generic Name Dose Route Start Last Admin Trade Name Freq PRN Reason Stop Dose Admin Acetaminophen 650 mg 04/09/23 10:33 Acetaminophen 325 Mg Tablet PO Q6H PRN Pain 1-3 or Fever Aspirin 325 mg 04/10/23 21:00 04/10/23 20:14 Aspirin 325 Mg Enteric Tablet P
[2023-04-11] MEDS: SENNA/DOCUSATE SODIUM TABLET 2 TAB PO (08:24)
[2023-04-11] MEDS: ACETAMINOPHEN 325 MG TABLET 650 MG PO (08:24)
[2023-04-11] MEDS: SERTRALINE HCL 25 MG TABLET PO (08:24)
[2023-04-11] MEDS: ASPIRIN 325 MG ENTERIC TABLET PO (08:25)
[2023-04-11] MEDS: SERTRALINE HCL 50 MG TABLET PO (08:25)
[2023-04-11] MEDS: HYDROmorphone HCL INJ (*CRX) 1 MG/ML SYR 0.5 MG IV PUSH (10:12)
[2023-04-11 10:40] VITALS: BP 118/62; PULSE 64; RESP 18; TEMP 36.4
--- NOTE | 2023-04-11 15:00 | PC.NURSE ---
On 04/11/23, license pending nurse provided care and completed [employer] documentation on this patient. I have reviewed the license pending nurse documentation and agree with the findings.
--- NOTE | 2023-04-11 15:01 | PM.DS ---
DS: Admitting Diagnosis Discharge Date 04/11/2023 Admitting Diagnosis Left Ankle Fracture DS: Discharge Diagnosis Discharge Diagnosis (1) Closed displaced trimalleolar fracture of left ankle: Qualifiers: Encounter type: subsequent encounter Fracture healing: with routine healing Qualified Code(s): S82.852D - Displaced trimalleolar fracture of left lower leg, subsequent encounter for closed fracture with routine healing Code(s): S82.852A - Displaced trimalleolar fracture of left lower leg, initial encounter for closed fracture Status: Acute Assessment and Plan: Postoperative day 1 open reduction internal fixation left ankle fracture. Operative findings and treatment reviewed with patient. Some issues with pain control. Still Using Dilaudid. PT/OT with crutches, nonweightbearing. Lab stable. Will see how she does with pain control and ambulation. Possible discharge later today or tomorrow. DS: Summary Hospital Course Reason for hospitalization: Left Ankle Fracture Hospital Course: 27 year old female admitted s/p left ankle fracture. She first underwent a closed reduction and splinting of the left ankle fractur by Dr. Campbell and then returned to the OR for an ORIF of the left ankle. postoperative medical management, pain control and mobilization with PT/OT. Patient progressed well with PT, contact guard with crutches and NWB of the LLE. Pain and vitals remained stable throughout. The patient has been cleared to be discharged home at this time. All discharge care instructions reviewed at depth. New medications reviewed. Follow up planned for 1 week in the outpatient orthopedic clinic with Dr. Campbell. Dr. Campbell in agreement with safe discharge at this time. Status at Discharge Functional status at discharge: uses cane/walker (crutches ) Overall status at discharge: patient is progressing back to baseline Time Spent with Patient Time attestation: Total time spent providing and/or coordinating discharge services: Exam Const: General: No confusion Orientation/consciousness: No confusion HENMT: Head: normal to inspection, normocephalic and atraumatic Neck: Neck: supple and nontender Chest: Chest palpation & inspection: normal inspection of the chest Resp: Effort & Inspection: normal respiratory effort and no audible wheezes Cardio: Rate: regular rate : General: Yes deferred Skin: General skin exam: no rashes or lesions noted Neuro: General: No confusion Cranial nerves: Yes Normal hearing present Extrem: General: capillary refill normal Right upper extremity: normal to inspection Left upper extremity: normal to inspection Right lower extremity: normal to inspection and hip/thigh Details: normal to inspection Left lower extremity: hip/thigh Details: normal to inspection, knee Details: normal to inspection and knee ligament exam normal Details: anterior drawer test normal, valgus stress test normal, varus stress test normal and Brigid's test normal, ankle (no calf tenderness) Details: abnormal to inspection ( Obvious swelling at the ankle joint), tenderness ( lateral malleolus), swelling (moderate lateral ankle), abnormal ROM Details: pain with active ROM Details: with plantar flexion and with dorsiflexion and with range as follows ( limited secondary to injury), crepitus Details: at the lateral malleolus and other ( good capillary refill in toes, 2+ DP pulse) and foot Details: normal capillary refill, toes with normal ROM, vascular exam Details: dorsalis pedis pulse present and motor-sensory exam Other: Left leg splint in place. Toes with good capillary refill and good sensation to touch. Able to move toes. Psych: Affect: normal affect DS: Data Data Completed and Pending Labs on day of discharge: Labs from last 24 hours 04/11/23 05:20 WBC 13.0 H RBC 3.97 L Hgb 12.4 Hct 38.0 MCV 95.7 MCH 31.2 MCHC 32.6 RDW 12.3 Plt Count 213 MPV 9.9 Immatur
== END 2023-04-11 15:35 | disposition home or self-care (01) | DRG 494 ==
LOC: ANHED 18:38 → ANH2MED 19:00
PROVIDERS: Admitting Provider Orthopaedic Surgery; Emergency Provider Physician Assistant; PCP Emergency Medicine; Visit Provider Nurse Practitioner Family
PROC: 0QSKXZZ Reposition Left Fibula, External Approach (ICD-10-PCS; principal; 2023-04-09 10:00)
PROC: 0QSH04Z Reposition Left Tibia with Internal Fixation Device, Open Approach (ICD-10-PCS; principal; 2023-04-10 14:00)
DX: S82.852A Displaced trimalleolar fracture of left lower leg, initial encounter for closed fracture (principal); W18.41XA Slipping, tripping and stumbling without falling due to stepping on object, initial encounter
CPT/HCPCS: 27818; 36415; 73600; 73610; 73700; 80048; 80053; 85025; 85610; 85730; 86850; 86900; 86901; 93005; 96374; 97161; 97165; 97530; 99199; 99214; 99285; A9270; C1713; C1769; G0378; G0463; J0690; J1100; J1170; J1885; J2250; J2405; J2704; J3010; J7120